=== PATIENT | male | born 1950 | race Asian ===

== ENCOUNTER → 2016-04-16 | Outpatient (CLI) | payer OTHER ==
--- NOTE | 2016-04-16 10:32 | DX ---
Right knee, 3 views. HISTORY: Follow-up arthroplasty. COMPARISON STUDY: March 03, 2016. FINDINGS: Surgical features of a right total knee arthroplasty are identified without complication. T he components of the prosthesis are well seated. No evidence of lucency. IMPRESSION: 1. Status post right total knee arthroplasty without hardware complication.
== END ==
LOC: BMCIMAGING 08:35
PROVIDERS: ATTEND Physician Assistant
DX: Z09 Encounter for follow-up examination after completed treatment for conditions other than malignant neoplasm (principal); Z96.651 Presence of right artificial knee joint

== ENCOUNTER → 2016-08-20 | Outpatient (CLI) | payer OTHER | LOC: BMCIMAGING 08:18 | PROVIDERS: ATTEND Orthopaedic Surgery | DX: Z09 Encounter for follow-up examination after completed treatment for conditions other than malignant neoplasm (principal); Z96.651 Presence of right artificial knee joint ==

== ENCOUNTER → 2017-02-25 | Outpatient (CLI) | payer OTHER | LOC: BMCIMAGING 08:18 | PROVIDERS: ATTEND Orthopaedic Surgery | DX: Z47.1 Aftercare following joint replacement surgery (principal); Z96.651 Presence of right artificial knee joint ==